=== PATIENT | male | born 2000 | race Caucasian/White ===

== ENCOUNTER 2022-09-15 17:04 | Inpatient (IN) | payer OTHER ==
[~2022-09-15] VITALS: Ht 170.2 cm; Wt 57.1 kg
[2022-09-15] MEDS ORDERED: LORazepam 2 MG/ML 1ML VIAL IV STA ×2 (17:18→18:13)
[2022-09-15] MEDS ORDERED: NS 1,710 ML in IV 1 EA IV ONE (17:20)
[2022-09-15 17:52] LABS: BASO % 0.3 % (0.0-1.0); HEMATOCRIT 43.2 % (42.0-52.0); HEMOGLOBIN 15.5 g/dl (13.5-17.5); LYMPH # 1.4 10^3/uL (1.5-5.0); LYMPH % 14.3 % (24.0-44.0); MEAN CORPUSCULAR HEMOGLOBIN 30.8 pg (27.0-33.0); MEAN CORPUSCULAR HGB CONC 35.9 g/dl (32.0-36.5); MEAN CORPUSCULAR VOLUME 85.7 fl (80.0-96.0); MONO # 0.6 10^3/uL (0.0-0.8); MONO % 5.9 % (2.0-8.0); NEUTROPHILS # 7.8 10^3/uL (1.5-8.5); NEUTROPHILS % 79.2 % (36.0-66.0); PLATELET COUNT, AUTOMATED 272 10^3/uL (150-450); RED BLOOD COUNT 5.04 10^6/uL (4.30-6.10); WHITE BLOOD COUNT 9.8 10^3/uL (4.0-10.0)
[2022-09-15 18:12] LABS: ETHYL ALCOHOL (ETHANOL) < 0.003 % (0.000-0.010); OSMOLALITY SERUM 280 MOSM/KG (275-295)
[2022-09-15 18:14] LABS: ACETAMINOPHEN LEVEL < 2.0 UG/ML (10.0-20.0); ALBUMIN 4.4 G/DL (3.2-5.2); ALKALINE PHOSPHATASE 61 U/L (46-116); ALT/SGPT 22 U/L (7.0-40); AST/SGOT 24 U/L (<34); BILIRUBIN,DIRECT 0.4 MG/DL (<0.4); BILIRUBIN,TOTAL 0.9 MG/DL (0.3-1.2); BLOOD UREA NITROGEN 9 MG/DL (9-23); CALCIUM LEVEL 9.7 MG/DL (8.5-10.1); CARBON DIOXIDE LEVEL 17 MMOL/L (20-31); CHLORIDE LEVEL 102 MMOL/L (98-107); CREATININE FOR GFR 0.85 MG/DL (0.70-1.30); GLUCOSE, FASTING 111 MG/DL (60-100); POTASSIUM SERUM 3.4 MMOL/L (3.5-5.1); SALICYLATE LEVEL < 3.0 MG/DL (<30); SODIUM LEVEL 136 MMOL/L (136-145); TOTAL PROTEIN 7.5 G/DL (5.7-8.2)
[2022-09-15 18:18] LABS: THYROID STIMULATING HORMONE 2.034 uIU/ML (0.48-4.17)
[2022-09-15 18:21] LABS: CPK CREATINE PHOSPHOKINASE 302 U/L (46-171)
[2022-09-15 18:24] LABS: AMPHETAMINES LEVEL URINE NEGATIVE (NEGATIVE); BARBITURATES URINE NEGATIVE (NEGATIVE); CANNABINOIDS URINE NEGATIVE (NEGATIVE); COCAINE METABOLITE URINE NEGATIVE (NEGATIVE); METHADONE URINE NEGATIVE (NEGATIVE); OPIATES URINE NEGATIVE (NEGATIVE); PHENCYCLIDINE URINE NEGATIVE (NEGATIVE)
[2022-09-15 18:25] LABS: BENZODIAZEPINES URINE NEGATIVE (NEGATIVE)
[2022-09-15 18:26] LABS: RSV AMPLIFICATION NEGATIVE (NEGATIVE)
[2022-09-15] MEDS ORDERED: DOCUSATE SODIUM 100MG CAPSULE PO PRN (19:10)
[2022-09-15] MEDS ORDERED: ACETAMINOPHEN TAB 650MG DOSE (2X325MG) PO PRN (19:10)
[2022-09-15] MEDS ORDERED: LORazepam 2 MG/ML 1ML VIAL IV PRN (19:30)
[2022-09-15] MEDS ORDERED: HOME MED LIST COMPLETE! XX SCH (19:40)
[2022-09-15] MEDS: LR 1,000 ML IV SCH (20:35)
[2022-09-15] MEDS ORDERED: POTASSIUM CHLORIDE 10MEQ SR TABLET PO ONE (20:50)
[2022-09-16] MEDS: LR 1,000 ML IV SCH ×3 (02:04→15:30)
[2022-09-16 06:00] LABS: HEMATOCRIT 44.6 % (42.0-52.0); HEMOGLOBIN 15.3 g/dl (13.5-17.5); MEAN CORPUSCULAR HEMOGLOBIN 30.7 pg (27.0-33.0); MEAN CORPUSCULAR HGB CONC 34.3 g/dl (32.0-36.5); MEAN CORPUSCULAR VOLUME 89.6 fl (80.0-96.0); PLATELET COUNT, AUTOMATED 262 10^3/uL (150-450); RED BLOOD COUNT 4.98 10^6/uL (4.30-6.10); WHITE BLOOD COUNT 7.9 10^3/uL (4.0-10.0)
[2022-09-16 06:19] LABS: BLOOD UREA NITROGEN < 5 MG/DL (9-23); CALCIUM LEVEL 9.3 MG/DL (8.5-10.1); CARBON DIOXIDE LEVEL 26 MMOL/L (20-31); CHLORIDE LEVEL 105 MMOL/L (98-107); CREATININE FOR GFR 0.86 MG/DL (0.70-1.30); GLUCOSE, FASTING 109 MG/DL (60-100); MAGNESIUM LEVEL 1.8 MG/DL (1.8-2.4); POTASSIUM SERUM 3.9 MMOL/L (3.5-5.1); SODIUM LEVEL 141 MMOL/L (136-145)
[2022-09-16 07:34] LABS: CPK CREATINE PHOSPHOKINASE 501 U/L (46-171)
[2022-09-16] MEDS ORDERED: ENOXAPARIN 40MG/0.4ML SYRINGE (J1650 PER 10MG) SC SCH (09:00)
[2022-09-16] MEDS ORDERED: diphenhydrAMINE 25MG CAP PO PRN (15:15)
[2022-09-16] MEDS ORDERED: MAALOX 30 ML SUSP *UDC PO PRN (15:15)
[2022-09-16] MEDS ORDERED: MOM 30ML SUSPENSION UDC PO PRN (15:15)
[2022-09-16] MEDS ORDERED: traZODone 50 MG TAB PO PRN (15:15)
[2022-09-16] MEDS ORDERED: ACETAMINOPHEN TAB 650MG DOSE (2X325MG) PO PRN (15:15)
[2022-09-16] MEDS ORDERED: IBUPROFEN 400MG TAB PO PRN (15:15)
[2022-09-16 16:18] VITALS: BP 120/93; TEMP 98.2; O2SAT 99
[2022-09-17 07:04] VITALS: BP 113/56; TEMP 97.6; O2SAT 98
[2022-09-17 18:38] VITALS: BP 115/57; TEMP 97.5; O2SAT 100
[2022-09-18 06:34] LABS: HEMATOCRIT 47.1 % (42.0-52.0); HEMOGLOBIN 15.8 g/dl (13.5-17.5); MEAN CORPUSCULAR HEMOGLOBIN 30.5 pg (27.0-33.0); MEAN CORPUSCULAR HGB CONC 33.5 g/dl (32.0-36.5); MEAN CORPUSCULAR VOLUME 90.9 fl (80.0-96.0); PLATELET COUNT, AUTOMATED 248 10^3/uL (150-450); RED BLOOD COUNT 5.18 10^6/uL (4.30-6.10); WHITE BLOOD COUNT 6.9 10^3/uL (4.0-10.0)
[2022-09-18 06:44] VITALS: BP 108/54; TEMP 98.1; O2SAT 100
== END 2022-09-18 13:27 | disposition home or self-care (01) | DRG 882 ==
LOC: M ED 17:04 → EDBD 17:04 → M ED INP 19:07 → M PSY 09-16 16:47
PROVIDERS: ADMIT Internal Medicine; ATTEND Student in an Organized Health Care Education/Training Program
DX: F43.23 Adjustment disorder with mixed anxiety and depressed mood (principal); E87.20 Acidosis, unspecified; F60.89 Other specific personality disorders; R00.0 Tachycardia, unspecified; E87.6 Hypokalemia